=== PATIENT | male | born 1950 | race Caucasian/White ===

== ENCOUNTER 2017-06-27 04:49 | Emergency (ER) | payer MEDICARE, MEDICAID ==
[~2017-06-27] VITALS: Ht 185.4 cm; Wt 77.2 kg
[~2017-06-27 04:49] MED LIST: BACTRIM DS1 TAB OR; CIPRO500 MG OR; DENIES CURRENT MEDS; DOXYCYC MONO100 M1 OR; INSULIN ISOPHANE; INSULIN SY SC; KEFLEX500 MG OR; LASIX 20 MG20 MG/TAB PO; LEVAQUIN500 MG PO; LIPITOR80 MG PO; LORTAB 10 OR; LORTAB 5 OR; MAG CITRATE OR; MEDDOSEPAK PO; METFORMIN500 M1 OR; METOPROL TAR50 MG PO; NOVOLIN R1000 UNITS IV; NOVOLIN R1000 UNITS SC; PLAVIX75 MG PO; PROAIR HFA IN; PROVENTIL HFA IN; TRAMADOL HCL50 MG PO; VENTOLIN HFA IN; [UNRECOGNIZED DRUG - OTHER]
[2017-06-27 05:55] LABS: HEMOGLOBIN 12.6 g/dl (14.0-18.0); IMMATURE GRANULOCYTES 1.1 % (0.0-1.0); MEAN CELL VOLUME 96.7 fL CALC (80.0-100.0); MEAN CORPUSCULAR HGB 32.1 pG CALC (26.0-32.0); MEAN CORPUSCULAR HGB CONC 33.2 g/L CALC (32.0-36.0); NEUT# 8.6 thou/uL (1.82-7.42); RED BLOOD COUNT 3.93 mill/uL (4.70-6.10); RED CELL DISTRI WIDTH 13.2 % (11.5-15.5)
[2017-06-27 05:56] LABS: ALBUMIN 4.3 g/dL (3.2-5.0); BILIRUBIN, TOTAL 0.9 mg/dL (0.0-1.4); TOTAL PROTEIN 7.5 g/dL (6.3-8.2)
[2017-06-27 05:59] LABS: PROTHROMBIN TIME 11.5 SECONDS (9.0-12.5)
[2017-06-27 06:07] LABS: CREATININE 8.4 mg/dL (0.7-1.3); POTASSIUM 5.5 mmol/l (3.5-5.1)
[2017-06-27 07:34] VITALS: BP 153/72
== END 2017-06-27 07:34 | disposition short-term general hospital (02) ==
LOC: ED 04:49
PROVIDERS: Emergency Medicine
DX: L02.31 Cutaneous abscess of buttock (principal); E11.22 Type 2 diabetes mellitus with diabetic chronic kidney disease; N18.6 End stage renal disease; E11.40 Type 2 diabetes mellitus with diabetic neuropathy, unspecified; F17.210 Nicotine dependence, cigarettes, uncomplicated; Z99.2 Dependence on renal dialysis; E87.5 Hyperkalemia

== ENCOUNTER 2018-01-03 12:21 | Emergency (ER) | payer MEDICARE, MEDICAID ==
[~2018-01-03] VITALS: Ht 185.4 cm; Wt 81.4 kg
[2018-01-03] MEDS ORDERED: CLEOCIN300 MG PO (12:51)
[2018-01-03 12:54] VITALS: BP 154/79
[2018-01-04] MEDS ORDERED: BACTRIM DS1 TAB PO (10:21)
[2018-01-04] MEDS ORDERED: CEPHALEXIN500 MG PO (10:21)
== END 2018-01-03 12:59 | disposition home or self-care (01) ==
LOC: ED 12:21
DX: L02.221 Furuncle of abdominal wall (principal); N18.6 End stage renal disease; Z99.2 Dependence on renal dialysis; F17.210 Nicotine dependence, cigarettes, uncomplicated

== ENCOUNTER 2018-07-04 14:50 | Emergency (ER) | payer MEDICARE, MEDICAID ==
[~2018-07-04] VITALS: Ht 185.4 cm; Wt 70.0 kg
[~2018-07-04 14:50] MED LIST changes: +BACTRIM DS1 TAB PO; +CEPHALEXIN500 MG PO; +CLEOCIN300 MG PO
[2018-07-04] MEDS ORDERED: PHOSLO667 M1 PO (15:01)
[2018-07-04] MEDS ORDERED: ASPIRIN 81 LOW81 MG PO (15:01)
[2018-07-04 16:26] LABS: HEMATOCRIT 34.6 % (39.0-50.0); HEMOGLOBIN 11.2 g/dl (14.0-18.0); IMMATURE GRANULOCYTES 0.6 % (0.0-5.0); MEAN CELL VOLUME 97.5 fL CALC (80.0-100.0); MEAN CORPUSCULAR HGB 31.5 pG CALC (26.0-32.0); MEAN CORPUSCULAR HGB CONC 32.4 g/L CALC (32.0-36.0); NEUT# 9.21 thou/uL (1.82-7.42); RED BLOOD COUNT 3.55 mill/uL (4.70-6.10); RED CELL DISTRI WIDTH 13.9 % (11.5-15.5)
[2018-07-04 16:39] LABS: ALBUMIN 3.9 g/dL (3.2-5.0); BILIRUBIN, TOTAL 0.8 mg/dL (0.0-1.4); TOTAL PROTEIN 6.9 g/dL (6.3-8.2)
[2018-07-04 16:47] LABS: CREATININE 8.2 mg/dL (0.7-1.3)
[2018-07-04 17:48] VITALS: BP 159/79
== END 2018-07-04 17:48 | disposition short-term general hospital (02) ==
LOC: ED 14:50
DX: J18.9 Pneumonia, unspecified organism (principal); R50.9 Fever, unspecified; R06.02 Shortness of breath; F17.210 Nicotine dependence, cigarettes, uncomplicated; N18.6 End stage renal disease; Z99.2 Dependence on renal dialysis; R94.31 Abnormal electrocardiogram [ECG] [EKG]